=== PATIENT | female | born 1980 | race Hispanic/Latino ===

== ENCOUNTER 2019-06-01 16:54 | Emergency (ER) | payer SELFPAY ==
[~2019-06-01] VITALS: Ht 157.5 cm; Wt 72.6 kg
[2019-06-01] MEDS ORDERED: SODIUM CHLORIDE 0.9% 1000ML 1,000 ML IV SCH (17:15)
[2019-06-01] MEDS ORDERED: SODIUM CHLORIDE 0.9% 1000ML 1,000 ML ONE (17:46)
[2019-06-01] MEDS ORDERED: ONDANSETRON HCL INJ 2MG/ML 2ML 2 MG/ML VIAL IV STA (18:08)
[2019-06-01] MEDS ORDERED: KETOROLAC TROMETHAMINE 30 MG/ML VIAL IV STA (18:08)
--- NOTE | 2019-06-01 18:08 | Diagnostic Imaging Report ---
CT Abdomen and Pelvis without contrast INDICATION: Left side pain for 3 days ^[id number] ^[id number] TECHNIQUE: Thin collimation axial images obtained from the diaphragm to the level of the pubic symphysis without nonionic intravenous contrast. Dose reduction techniques used: Automated exposure control, adjustment of the mAs and/or kVp according to patient size, standardized low-dose protocol, and/or iterative reconstruction technique. RADIATION DOSE: Total DLP: 680.54 mGy*cm Estimated effective dose: (DLP x 0.015 x size factor) mSv CTDIvol has been reviewed. It is below the limits set by the Radiation Protocol Committee (RPC). COMPARISON: None. ABDOMEN FINDINGS: Lung Bases: Clear. The visualized portion of the mediastinum is normal. Liver: Normal in attenuation without mass. Gallbladder: Present and appears normal. No ductal dilatation. Pancreas: Normal attenuation without mass. Spleen: Normal size without mass. Adrenal Glands: No evidence for mass. Kidneys: Bilateral cortical lobulations, likely congenital. Right: No renal calculus. No cortical mass or hydronephrosis. Left: No renal calculus. No cortical mass or hydronephrosis. Lymph Nodes: No enlarged abdominal or periaortic lymph nodes. Aorta: Normal in diameter. PELVIS FINDINGS: Bowel: Stomach: Normal. Small Bowel: Normal in caliber with normal wall thickness. Large Bowel: Normal in diameter with normal wall thickness. Appendix: Normal. Bladder: Normal. Ureters: No ureteral calculus or dilatation. The uterus is present and normal in morphology. No adnexal mass. Peritoneum/retroperitoneum: No free fluid or fluid collection. Bones: Unremarkable for age. IMPRESSION: 1. No evidence of renal calculus or obstructive uropathy. 2. No evidence for bowel obstruction or inflammation. Normal appendix. Signed by: Dr. Andrés Kingsley MD on 06/01/2019 6:05 PM
[2019-06-01] MEDS ORDERED: ONDANSETRON HCL INJ 2MG/ML 2ML 2 MG/ML VIAL ONE (18:13)
[2019-06-01] MEDS ORDERED: KETOROLAC TROMETHAMINE 30 MG/ML VIAL ONE (18:13)
[2019-06-01] MEDS ORDERED: NAPROSYN500 MG PO (18:35)
[2019-06-01] MEDS ORDERED: ULTRAM50 MG PO (18:36)
--- OUTSIDE RECORDS SUMMARY | 2019-06-01 18:36 | XMS REPORT ---
Author Author [facility] Address Unknown Phone Unavailable Care Team Providers Care Emanations Analysis Technician Name Role Phone Juana WHEELER Unavailable Unavailable Problems This patient has no known problems. Allergies, Adverse Reactions, Alerts This patient has no known allergies or adverse reactions. Medications This patient has no known medications. Results Test Description Test Time Test Comments Text Results Atomic Results Result Comments CT ABD/PEL WO CONTRAST-HOPD 2019-06-01 18:02:00 [place] [address] Patient Name: TING BAIN MR #: [id number] : 1980 Age/Sex: 39/F Req #: [id number] Adm Physician: Ordered by: KRISTIE WHEELER MD Report #: [id number] Location: [facility] Room/Bed: Procedure: [id number] HOPD/CT ABD/PEL WO CONTRAST-HOPD Exam Date: 06/01/19 Exam Time: 1745 REPORT STATUS: Signed CT Abdomen and Pelvis without contrast INDICATION: Left side pain for 3 days [id number] TECHNIQUE: Thin collimation axial images obtained from the diaphragm to the level of the pubic symphysis without nonionic intravenous contrast. Dose reduction techniques used: Automated exposure control, adjustment of the mAs and/or kVp according to patient size, standardized low-dose protocol, and/or iterative reconstru ction technique. RADIATION DOSE: Total DLP: 680.54 mGy*cm Estimated effective dose: (DLP x 0.015 x size factor) mSv CTDIvol has been reviewed. It is below the limits set by the Radiation Protocol Committee (RPC). COMPARISON: None. ABDOMEN FINDINGS: Lung Bases: Clear. The visualized portion of the mediastinum is normal. Liver: Normal in attenuation without mass. Gallbladder: Present and appears normal. No ductal dilatation. Pancreas: Normal attenuation without mass. Spleen: Normal size without mass. Adrenal Glands: No evidence for mass. Kidneys: Bilateral cortical lobulations, likely congenital. Right: No renal calculus. No cortical mass or hydronephrosis. Left: No renal calculus. No cortical mass or hydronephrosis. Lymph Nodes: No enlarged abdominal or periaortic lymph nodes. Aorta: Normal in diameter. PELVIS FINDINGS: Bowel: Stomach: Normal. Small Bowel: Normal in caliber with normal wall thickness. Large Bowel: Normal in diameter with normal wall thickness. Appendix: Normal. Bladder: Normal. Ureters: No ureteral calculus or dilatation. The uterus is present and normal in morphology. No adnexal mass. Peritoneum/retroperitoneum: No free fluid or fluid collection. Bones: Unremarkable for age. IMPRESSION: 1. No evidence of renal calculus or obstructive uropathy. 2. No evidence for bowel obstruction or inflammation. Normal appendix. Signed by: Dr. Mariangel Kingsley MD on 06/01/2019 6:05 PM Dictated By: MARIANGEL KINGSLEY MD 04 Transcribed By: NELLY on 06/01/191804 COPY TO: KRISTIE WHEELER MD
[2019-06-01] MEDS ORDERED: POTASSIUM CHLORIDE 20 MEQ TAB CR PO ONE (18:39)
[2019-06-01 18:45] VITALS: BP 137/79
[2019-06-01] MEDS ORDERED: POTASSIUM CHLORIDE 20 MEQ TAB CR PO NR (19:00)
== END 2019-06-01 18:46 | disposition home or self-care (01) ==
LOC: FSED 16:54
DX: M54.5 Low back pain (principal)
CPT/HCPCS: 74176; 80053; 81003; 81025; 85025; 99284; J1885; J2405; J7030